=== PATIENT | male | born 1985 | race Caucasian/White ===

== ENCOUNTER 2021-05-08 08:50 | Day surgery (SDC) | payer BC, OTHER ==
[2021-05-06 12:55] VITALS: BP 120/73
[2021-05-06 13:11] LABS: BASOPHILS % (AUTO) 0.6 % (0.0-5.0); EOSINOPHILS % (AUTO) 1.9 % (0.0-8.0); HEMATOCRIT 42.8 % (42-54); LYMPHOCYTES % (AUTO) 31.3 % (21.0-51.0); MEAN CORPUSCULAR HEMOGLOBIN 28.7 pg (27.0-33.0); MEAN CORPUSCULAR HGB CONC 33.2 g/dL (32.0-36.0); MEAN CORPUSCULAR VOLUME 86.5 fL (79-99); MONOCYTES % (AUTO) 7.1 % (3.0-13.0); NEUTROPHILS % (AUTO) 58.8 % (40.0-77.0); PLATELET COUNT (AUTO) 260 K/uL (130-400); RED BLOOD CELL COUNT(AUTO) 4.95 MIL/uL (4.50-6.20); RED CELL DISTRIBUTION WIDTH 12.6 % (11.0-15.5); WHITE BLOOD COUNT (AUTO) 7.2 K/uL (4.8-10.8)
[2021-05-06 13:25] LABS: INR 1.01 (0.85-1.15)
[~2021-05-08] VITALS: Ht 180.3 cm; Wt 86.5 kg
[2021-05-08] VITALS (19 sets, daily range): BP systolic 108–130; BP diastolic 68–94
[2021-05-08] MEDS ORDERED: LACTATED RINGERS 1000ML 1,000 ML IV ONE (08:54)
[2021-05-08] MEDS ORDERED: CEFAZOLIN SODIUM 1 GM VIAL ONE (08:54)
[2021-05-08] MEDS ORDERED: SUCCINYLCHOLINE CHLORIDE 20 MG/ML 10 ML VIAL ONE (10:07)
[2021-05-08] MEDS ORDERED: PROPOFOL 10 MG/ML 20ML VIAL IV ONE (10:07)
[2021-05-08] MEDS ORDERED: LIDOCAINE PF 100MG/5ML (2%) SYRINGE 5ML ONE (10:07)
[2021-05-08] MEDS ORDERED: FENTANYL CITRATE PF 50 MCG/1 ML 2ML VIAL ONE (10:08)
[2021-05-08] MEDS ORDERED: LIDOCAINE 1%-EPI 1:100,000 20 ML VIAL IJ ONE (10:08)
[2021-05-08] MEDS ORDERED: ONDANSETRON 4MG INJ ONE (10:12)
[2021-05-08] MEDS ORDERED: KETOROLAC 30MG VIAL (30MG/ML) ONE (10:13)
[2021-05-08] MEDS ORDERED: GLYCOPYRROLATE 1 MG/5 ML SYRINGE ONE (10:36)
[2021-05-08] MEDS ORDERED: MORPHINE 2 MG SYG ONE (11:28)
[2021-05-08] MEDS ORDERED: APAP/CODEINE 120/12MG 5ML ONE (12:55)
[2021-05-08] MEDS ORDERED: APAP/CODEINE 120/12MG 5ML PO ONE (14:30)
== END 2021-05-08 13:40 | disposition home or self-care (01) ==
LOC: DAHIP 08:50 → DAH 08:50 → UNDOADMOB 08:50 → EDSTATUS 10:30 → DAH 13:40
PROVIDERS: ATTEND Otolaryngology Plastic Surgery within the Head & Neck
DX: J35.01 Chronic tonsillitis (principal); Z20.822 Contact with and (suspected) exposure to COVID-19; J35.8 Other chronic diseases of tonsils and adenoids; Z79.01 Long term (current) use of anticoagulants; Z98.890 Other specified postprocedural states; Z82.49 Family history of ischemic heart disease and other diseases of the circulatory system; Z80.9 Family history of malignant neoplasm, unspecified
CPT/HCPCS: 36415; 42826; 71045; 85025; 85610; 87635; 93005; A4215; A4221; A4222; A4223; A4600; A4649; A4663; A4930; A6260; J0330; J1885; J2001; J2405; J2704; J3010; J3490 ×2; J7120; J0690